=== PATIENT | female | born 1975 | race Caucasian/White ===

== ENCOUNTER 2017-05-23 12:22 | Emergency (ER) | payer BC ==
[~2017-05-23] VITALS: Ht 170.2 cm; Wt 66.0 kg
[~2017-05-23 12:22] MED LIST: PREN1TAB79 PO
[2017-05-23] MEDS ORDERED: METH4TAB3 PO (15:07)
[2017-05-23] MEDS ORDERED: IBUP-1984 PO (15:07)
[2017-05-23] MEDS: dexamethasone sod phosphate 10mg/ml inj IM STA (15:20)
[2017-05-23 15:36] VITALS: BP 124/78
== END 2017-05-23 15:38 | disposition home or self-care (01) ==
LOC: ER 12:23
DX: G51.0 Bell's palsy (principal); Z88.1 Allergy status to other antibiotic agents
CPT/HCPCS: 70450; 96372; 99284; J1100

== ENCOUNTER 2021-08-02 02:27 | Emergency (ER) | payer BC ==
[~2021-08-02] VITALS: Ht 170.2 cm; Wt 68.6 kg
[~2021-08-02 02:27] MED LIST changes: +METH4TAB3 PO
[2021-08-02 02:34] VITALS: BP 132/81
== END 2021-08-02 07:35 | disposition left against medical advice (07) ==
LOC: ER 02:28
DX: R07.9 Chest pain, unspecified (principal); Z53.21 Procedure and treatment not carried out due to patient leaving prior to being seen by health care provider
CPT/HCPCS: 93005